=== PATIENT | male | born 1950 | race Caucasian/White ===

== ENCOUNTER 2024-06-23 05:34 | Day surgery (SDC) | payer MEDICARE ==
[2024-06-17 16:50] LABS: BASOPHILS # (AUTO) 0.1 X10'3 (0-0.2); BASOPHILS % (AUTO) 0.9 % (0-1); EOSINOPHILS # (AUTO) 0.2 X10'3 (0-0.9); EOSINOPHILS % (AUTO) 2.5 % (0-6); LYMPHOCYTES # (AUTO) 2.1 X10'3 (1.1-4.8); LYMPHOCYTES % (AUTO) 25.5 % (21-51); MEAN CORPUSCULAR HGB CONC 33.1 g/dL (33.0-36.5); MEAN CORPUSCULAR VOLUME 87.7 FL (78-98); MEAN PLATELET VOLUME 8.9 FL (7.4-10.4); MONOCYTES # (AUTO) 0.8 X10'3 (0-0.9); MONOCYTES % (AUTO) 9.2 % (2-12); NEUTROPHILS # (AUTO) 5.2 X10'3 (1.8-7.7); NEUTROPHILS % (AUTO) 61.9 % (42-75); PRE OP HEMATOCRIT 46.2 % (42.0-52.0); PRE OP HEMOGLOBIN 15.3 g/dL (14.0-17.9); PRE OP PLATELET COUNT 186 X10'3 (140-440); PRE OP WHITE BLOOD COUNT 8.4 10'3 (4.8-10.8); RED BLOOD COUNT 5.27 X10'6 (4.70-6.10); RED CELL DISTRIBUTION WIDTH 14.2 % (11.5-14.5)
[2024-06-17 16:53] LABS: ALKALINE PHOSPHATASE 75 IU/L (46-116); BLOOD UREA NITROGEN 20 MG/DL (7-18); CALCIUM 9.6 MG/DL (8.5-10.1); CHLORIDE 103 MMOL/L (99-107); PRE OP ALT 53 U/L (30-65); PRE OP ANION GAP 8 (8-16); PRE OP AST 43 U/L (10-37); PRE OP GLUCOSE 104 MG/DL (70-104); PRE OP POTASSIUM 4.2 MMOL/L (3.4-5.1); PRE OP SODIUM 138 MMOL/L (135-145); TOTAL CARBON DIOXIDE 27.5 MMOL/L (24-32); eGFR 73 ML/MIN
[~2024-06-23] VITALS: Ht 172.7 cm; Wt 94.2 kg
[2024-06-23] VITALS (26 sets, daily range): BP systolic 81–151; BP diastolic 70–88; PULSE 76–101; RESP 13–18; TEMP 97.2–98.6; O2SAT 93–99
[~2024-06-23 05:34] MED LIST: DOXY25PO2 PO; FLO0.4C PO; IBUP-1985 PO; LEVO100T9 PO; OMEP40CA21 PO; ROSU5TAB51 PO
[2024-06-23] MEDS: ringers solution, lacted 1,000 ML IV SCH ×2 (06:26→14:00)
[2024-06-23] MEDS: famotidine 20mg tablet PO ONE (06:26)
[2024-06-23] MEDS: ceFAZolin 2gm in dextrose, iso 50 ML IV ONE (06:26)
[2024-06-23] MEDS ORDERED: fluoroscein sod 10% (100mg/ml) 5ml vial ONE (06:37)
[2024-06-23] MEDS ORDERED: BUPIVAcaine 0.25% w/Epi /PF 30ml vial ONE (06:37)
[2024-06-23] MEDS ORDERED: INDOCYANINE GREEN 25 MG/10 ML VIAL IV ONE (06:37)
[2024-06-23] MEDS ORDERED: midazolam 1 mg/ML 2ml injection ONE (07:24)
[2024-06-23] MEDS ORDERED: propofol inj 20 ML IV ONE (07:24)
[2024-06-23] MEDS ORDERED: fentaNYL /PF 50mcg/ml 5ml ampule ONE (07:24)
[2024-06-23] MEDS ORDERED: rocuronium 10mg/ml inj IV ONE ×2 (07:24)
[2024-06-23] MEDS ORDERED: sevoflurane 250ml liquid IH ONE (07:39)
[2024-06-23] MEDS ORDERED: meperidine/PF 25mg/ml syringe IV PRN (09:05)
[2024-06-23] MEDS ORDERED: labetalol 20mg/4ml (5mg/ml) syringe IV PRN (09:05)
[2024-06-23] MEDS ORDERED: HYDROmorphone/PF 0.2 MG/ML SYRINGE IV PRN ×2 (09:05)
[2024-06-23] MEDS ORDERED: morphine 2 MG/ML inj. syringe IV PRN (09:05)
[2024-06-23] MEDS ORDERED: acetaminophen 1,000mg/100ml IV 100 ML IV PRN (09:05)
[2024-06-23] MEDS ORDERED: morphine 4 MG/ML inj SYRINge IV PRN (09:05)
[2024-06-23] MEDS ORDERED: ondansetron/PF 4mg/2ml inj IV PRN ×3 (09:05→11:40)
[2024-06-23] MEDS ORDERED: dexamethasone sod phosphate 4mg/ml inj. ONE (09:58)
[2024-06-23] MEDS ORDERED: ondansetron/PF 4mg/2ml inj ONE (09:59)
[2024-06-23] MEDS ORDERED: BUPIVACAINE liposomal/PF 13.3 MG/ML 10mL vial IM ONE (10:55)
[2024-06-23] MEDS ORDERED: glycopyrrolate 0.2mg/ml inj ONE (11:01)
[2024-06-23] MEDS ORDERED: neostigmine methylsulfate 1 MG/ML 10ml vial ONE (11:01)
[2024-06-23] MEDS: BUPIVACAINE liposomal/PF 13.3 MG/ML 10mL vial IM ONE (11:10)
[2024-06-23] MEDS ORDERED: HYDROmorphone inj. 0.5 MG/0.5 ML DISP.SYRIN IV PRN (11:25)
[2024-06-23] MEDS ORDERED: HYDROcodone/acetaminophen 5mg/325mg tablet PO PRN (11:25)
[2024-06-23] MEDS ORDERED: magnesium hydroxide 30ml (MOM) UD suspension PO PRN (11:25)
[2024-06-23] MEDS ORDERED: mag hydrox/Alum hydrox/simeth 30ml oral suspension PO PRN (11:25)
[2024-06-23] MEDS ORDERED: zolpidem 5mg tablet PO PRN (11:25)
[2024-06-23] MEDS ORDERED: acetaminophen 325mg tablet PO PRN (11:25)
[2024-06-23] MEDS ORDERED: diphenhydrAMINE 25mg capsule PO PRN (11:25)
[2024-06-23] MEDS ORDERED: ibuprofen 200mg tablet PO PRN (11:55)
[2024-06-23] MEDS: ketorolac trometh 30MG/ML vial 30 MG/ML VIAL IV ONE (12:59)
[2024-06-23] MEDS: docusate sod 100mg capsule PO SCH (20:43)
[2024-06-23] MEDS: atorvastatin 20mg tablet PO SCH (20:44)
[2024-06-23] MEDS: heparin, porcine 5000 units/ml vial SQ SCH (20:46)
[2024-06-23] MEDS ORDERED: temazepam 15mg capsule PO PRN (21:00)
[2024-06-24 02:00] VITALS: BP 115/79; PULSE 84; RESP 14; TEMP 97.3; O2SAT 94
[2024-06-24 05:26] LABS: BASOPHILS % (AUTO) 0.1 % (0-1); EOSINOPHILS % (AUTO) 0.1 % (0-6); HEMATOCRIT 40.2 % (42.0-52.0); HEMOGLOBIN 13.4 g/dl (14.0-17.9); LYMPHOCYTES # (AUTO) 1.1 X10'3 (1.1-4.8); LYMPHOCYTES % (AUTO) 10.6 % (21-51); MEAN CORPUSCULAR HEMOGLOBIN 29.2 PG (27.0-31.0); MEAN CORPUSCULAR HGB CONC 33.2 g/dL (33.0-36.5); MEAN PLATELET VOLUME 8.9 FL (7.4-10.4); MONOCYTES # (AUTO) 1.3 X10'3 (0-0.9); MONOCYTES % (AUTO) 12.6 % (2-12); NEUTROPHILS # (AUTO) 7.7 X10'3 (1.8-7.7); NEUTROPHILS % (AUTO) 76.6 % (42-75); PLATELET COUNT 169 X10'3 (140-440); RED BLOOD COUNT 4.57 X10'6 (4.70-6.10); RED CELL DISTRIBUTION WIDTH 13.7 % (11.5-14.5); WHITE BLOOD COUNT 10.1 X10'3 (4.5-11.0)
[2024-06-24 05:41] LABS: ALBUMIN 2.9 G/DL (3.4-5.0); BLOOD UREA NITROGEN 23 MG/DL (7-18); BUN/CREATININE RATIO 22.3 (10.0-20.0); CALCIUM 8.7 MG/DL (8.5-10.1); CREATININE 1.03 MG/DL (0.60-1.10); GLUCOSE 127 MG/DL (70-104); POTASSIUM 4.3 MMOL/L (3.5-5.1); SODIUM 137 MMOL/L (135-145); TOTAL CARBON DIOXIDE 27.9 MMOL/L (24-32); eCRCL 61 ML/MIN; eGFR 71 ML/MIN
[2024-06-24 05:46] LABS: ANION GAP 5 (8-16); CHLORIDE 104 MMOL/L (99-107)
[2024-06-24 08:00] VITALS: RESP 16; O2SAT 98
[2024-06-24] MEDS: levoTHYROXINE 100mcg tablet PO SCH (08:10)
[2024-06-24] MEDS: pantoprazole 40mg Tablet.DR PO SCH (08:11)
== END 2024-06-24 12:45 | disposition home or self-care (01) ==
LOC: PAS 05:34 → SUR 3N 14:40 → PAS 06-24 12:45
PROVIDERS: ATTEND Urology
DX: C61 Malignant neoplasm of prostate (principal); Z79.899 Other long term (current) drug therapy; Z87.891 Personal history of nicotine dependence; I10 Essential (primary) hypertension; E78.5 Hyperlipidemia, unspecified; E03.9 Hypothyroidism, unspecified; K21.9 Gastro-esophageal reflux disease without esophagitis; M19.90 Unspecified osteoarthritis, unspecified site; G47.00 Insomnia, unspecified; Z88.0 Allergy status to penicillin; Z88.8 Allergy status to other drugs, medicaments and biological substances
CPT/HCPCS: 36415; 38571; 55866; 80048; 80053; 82948; 85025; 86885; 86900; 86901; 87081; 88307; 88309; 93005; A4215; A4333; A4338; A4357; A4615; A4618; A5200; J0666; J0690; J1100; J1644; J1885; J2250; J2405; J2704; J2710; J3010; J3490; J7030; J7120; Z7506; Z7508; Z7512; Z7610; G0378; S0020